=== PATIENT | male | born 1935 | race Caucasian/White ===

== ENCOUNTER 2020-08-23 08:37 | Outpatient (REF) | payer MEDICARE, SELFPAY ==
--- NOTE | ~2020-08-23 | US_ITS ---
EXAMINATION: US RETROPERITONEAL LIMITED (AORTA) CLINICAL INFORMATION: Abdominal aortic aneurysm without rupture. COMPARISON: Ultrasound abdominal aorta dated 10/09/2019 and 12/24/2017. TECHNIQUE: Grayscale, color Doppler and spectral Doppler evaluation of the abdominal aorta. The study was somewhat challenging due to the patient's body habitus. Therefore, the aneurysm measurements were difficult to obtain accurately. FINDINGS: There is aneurysmal dilatation of the distal abdominal aorta, measuring 4.8 x 4.0 cm. Previously, this measured 3.6 x 3.8 cm. The measurements of the aorta in maximum AP and transverse dimensions respectively are as follows: PROXIMAL: 3.1 x 3.1 cm. MID: 2.2 x 2.1 cm. PSV: 83 cm/sec. DISTAL: 4.9 x 4.0 cm. The measurements of the common iliac arteries are as follows: AP: Right: 1.2 cm. Left: 1.3 cm. TRANS: Right: 1.1 cm. Left: 0.8 cm. US/US abdominal aortic aneurysm IMPRESSION: 1. There is aneurysmal dilatation of the distal abdominal aorta, measuring 4.8 x 4.0 cm. This appears increased when compared to the previous study dated 3.6 x 3.8 cm. Because the patient's body habitus made it difficult to obtain exact measurements, I would recommend more accurate measurement of this aneurysm using CT scan of the abdomen.
== END 2020-08-23 08:38 | disposition home or self-care (01) ==
LOC: HO.US 08:37
PROVIDERS: PCP Internal Medicine; Visit Provider Internal Medicine
DX: I71.4 Abdominal aortic aneurysm, without rupture (principal)
CPT/HCPCS: 76706

== ENCOUNTER 2021-01-31 13:11 | Emergency (ER) | payer MEDICARE, SELFPAY ==
--- NOTE | ~2021-01-31 | XR_ITS ---
EXAMINATION: XR FOOT, LEFT CLINICAL INFORMATION: Pain while walking, heel and dorsum foot. COMPARISON: None TECHNIQUE: AP, lateral, and oblique views of the left foot. FINDINGS: There is no acute or healing fracture, dislocation, destructive process. Bony mineralization appears normal. Visualized subtalar joint unremarkable. There is a small corticated ossicle in region of distal Achilles and also small corticated ossicle adjacent to the distal dorsal talus. The retrocalcaneal recess appears preserved. The midfoot and forefoot shows no arthropathy. XR/XR foot LT 2V IMPRESSION: Unremarkable left foot.
[2021-01-31 13:45] VITALS: BP 157/75; PULSE 77; RESP 18; TEMP 36.4; O2SAT 95; BMI 28.8
--- NOTE | 2021-01-31 16:45 | ED.EXTPRO ---
HPI - Extremity Problem General Chief complaint: Extremity Problem Stated complaint: l foot pain Time Seen by Provider: 01/31/21 16:45 Source: patient Mode of arrival: ambulatory Limitations: no limitations History of Present Illness MD Complaint: extremity pain Onset (ago): day(s) (Past 2 days worse today) Pain Consistency: constant Location: left and lower extremity (At the foot posterior heel aspect near distal aspect of Achilles) Quality: aching Radiation: none Relieving factors: rest Exacerbating factors: weight bearing Associated symptoms: denies other symptoms Related Data Previous Rx's Medication Instructions Recorded acetaminophen 300 mg-codeine 15 mg 1 tab PO Q8H PRN #10 tab 01/31/21 tablet cyclobenzaprine 10 mg tablet 10 mg PO Q8H PRN #14 tab 01/31/21 naproxen 500 mg tablet 500 mg PO BID PRN #10 tab 01/31/21 Allergies Allergy/AdvReac Type Severity Reaction Status Date / Time lisinopril [LISINOPRIL] AdvReac Intermediate NAUSEA Verified 01/31/21 13:45 Review of Systems Review of Systems: Constitutional : No Weight loss, No Fever, No Chills, No Night Sweats, No Fatigue, No Malaise ENT/Mouth : No Hearing loss, No Ear Pain, No Nasal Congestion, No Sinus Pain, No Hoarseness, No sore throat, No Rhinorrhea, No Swallowing Difficulty Eyes: No Eye Pain, No Swelling, No Redness, No Foreign Body, No Discharge, No Vision Changes Cardiovascular : No Chest Pain, No SOB, No Dyspnea on Exertion, No Orthopnea, No Edema, No Palpitations Respiratory : No Cough, No Sputum, No Wheezing, No Smoke Exposure, No Dyspnea Gastrointestinal : No Nausea, No Vomiting, No Diarrhea, No Constipation, No abdominal Pain, No Hematochezia, No Melena Genitourinary : no irregular bleeding, No Dysuria, No Urinary Frequency, No Hematuria, No Urinary Incontinence, No Urgency, No Flank Pain, No Urinary Flow Changes, No Hesitancy Musculoskeletal : + left foot joint pain, No Myalgias, No Joint Swelling Skin : No Skin Lesions, No rash Neuro : No Weakness, No Numbness, No Paresthesias, No Loss of Consciousness, No Dizziness, No Headache Psych : No Anxiety/Panic, No Depression, No SI/HI/AH/VH, No Social Issues, Heme/Lymph: No Bruising, No Bleeding,No Lymphadenopathy Endocrine : No Polyuria, No Polydipsia, No Temperature Intolerance Yes all other systems are reviewed and are negative FOR[facility]LY [facility] Past Medical History Attestation statement: The following information was validated with the patient. Social History Social History Advance Directives: Yes Advance Directives Information Provided: Yes Advance Directives on File: No Physical Exam Vital Signs: Vital Signs: Last Vital Signs Temp 97.5 F 01/31/21 13:45 Pulse 77 01/31/21 13:45 Resp 18 01/31/21 13:45 BP 157/75 H 01/31/21 13:45 Pulse Ox 95 01/31/21 13:45 Body Mass Index 28.8 vital signs have been reviewed as normal and appeared to be correct. Blood pressure hypertensive 157/75. Heart rate normal. Respiration rate normal. Temperature normal. Oxygen saturation normal. Appearance: Alert. Oriented X3. No acute distress. Head: Normal external exam. Normocephalic. Atraumatic. Eyes: PERRLA. EOMI. Conjunctiva and sclera normal. Eyelids normal. ENT: Pharynx normal. Uvula midline. Moist mucous membranes. Neck: Normal inspection. Neck supple. FROM. CVS: Normal heart rate and rhythm. Respiratory: No respiratory distress. Painless inspiration. Skin: Skin warm and dry. Normal skin color. Normal skin turgor. No rashes/lesions/lacerations noted. Extremities: Patient with point tenderness to the posterior heel/ankle near the distal aspect of the insertion of the Achilles tendon although patient Achilles tendon does not appear to be ruptured negative Saunders test. No tenderness near plantar fasciitis aspect. Otherwise no calf tenderness or lower extremity edema. Otherwise all other Extremities exhibit normal range of motion and nontender. Neuro: Oriented X 3. No motor deficit. No sensory deficit. Reflexes normal. Normal steady gait. No focal neuro deficits noted. Vascular: + radial pulses/+ 2 distal pedal pulses/+2 dorsalis pedis b/l. Normal cap refill. No cyanosis noted to upper extremity nails and lower extremity toes nails. Course Course Course Narrative: 85-year-old male presenting to the ED with complaints of left foot/ankle pain at the posterior aspect near the heel after he went on a 1-1/2 mi walk 2 days ago and since then he has been having pain when he steps on the foot. On exam he has tenderness to the posterior heel/ankle aspect near the Achilles tendon although Achilles tendon does not appear to be ruptured. No lower extremity edema or calf tenderness noted. X-ray negative for any acute processes. Will DC home with symptomatic treatment and Steve wrap along with instructions return if any new or worsening symptoms to follow up with gallery or museum guide. Patient understands agrees with this plan. MDM - Extremity (Nontraumatic) Imaging Data Left foot x-ray: Attestation: I personally reviewed and interpreted this imaging study as follows: Radiologist's impression: FINDINGS: There is no acute or healing fracture, dislocation, destructive process. Bony mineralization appears normal. Visualized subtalar joint unremarkable. There is a small corticated ossicle in region of distal Achilles and also small corticated ossicle adjacent to the distal dorsal talus. The retrocalcaneal recess appears preserved. The midfoot and forefoot shows no arthropathy.? XR/XR foot LT 2V IMPRESSION: Unremarkable left foot. Discharge Plan Discharge Clinical Impression: Muscle strain of left foot Patient Disposition: Home, Self-Care Instructions: How to Use an Elastic Bandage (ED), Foot Sprain (ED) Prescriptions: New naproxen 500 mg tablet 500 mg PO BID PRN (Reason: pain) Qty: 10 RF: 0 acetaminophen-codeine 300-15 mg tablet 1 tab PO Q8H PRN (Reason: pain) Qty: 10 RF: 0 cyclobenzaprine 10 mg tablet 10 mg PO Q8H PRN (Reason: Muscle spasm) Qty: 14 RF: 0 Referrals: Yung Bailey [Physician] - 2 days Print Language: Chinese
== END 2021-01-31 17:12 | disposition home or self-care (01) ==
PROVIDERS: Emergency Provider Internal Medicine; PCP Internal Medicine
DX: S96.912A Strain of unspecified muscle and tendon at ankle and foot level, left foot, initial encounter (principal); X58.XXXA Exposure to other specified factors, initial encounter; Y93.01 Activity, walking, marching and hiking; Y92.9 Unspecified place or not applicable; Y99.9 Unspecified external cause status
CPT/HCPCS: 73620; 99283

== ENCOUNTER 2021-03-01 09:16 | Outpatient (REF) | payer MEDICARE, SELFPAY ==
[2021-03-01 10:22] LABS: Blood Urea Nitrogen 14 mg/dL (9-16); Estimated Glomerular Filt Rate 59
== END 2021-03-01 09:17 | disposition home or self-care (01) ==
LOC: HO.LAB 09:16
PROVIDERS: PCP Internal Medicine; Visit Provider Internal Medicine
DX: I10 Essential (primary) hypertension (principal); I71.4 Abdominal aortic aneurysm, without rupture
CPT/HCPCS: 36415; 82565; 84520

== ENCOUNTER 2021-03-07 08:11 | Outpatient (REF) | payer MEDICARE, SELFPAY ==
--- NOTE | ~2021-03-07 | CT_ITS ---
EXAMINATION: CTA ABDOMEN AND PELVIS CLINICAL INFORMATION: Abdominal aortic aneurysm. TECHNIQUE: Multiple axial images were obtained through the abdomen and pelvis before and after administration of 80 mL of Omnipaque 350 intravenously. Images were evaluated on independent dedicated 3-D workstation and 3-D images were reconstructed with concurrent radiologist supervision and subsequently interpreted. Specific vascular measurements are placed directly on the 3-D rendered images and are documented and stored in PACS. This CT examination was performed using dose optimization techniques as appropriate, variously including the following: *Automated exposure control. *Adjustment of mA and/or kV according to patient size (this includes techniques or standardized protocols for targeted exams where dose is matched to indication/reason for exam, i.e., extremities or head). *Use of iterative reconstruction technique. COMPARISON: CT of the abdomen on 02/05/2019. DLP: 325 mGy-cm FINDINGS: VASCULAR: Abdominal aorta: There is severe aortic atherosclerotic disease. The suprarenal abdominal aorta is normal in caliber. There is an infrarenal abdominal aortic aneurysm which measures up to 3.0 x 3.5 cm, previously measuring 2.8 x 3.1 cm measured transaxially on series 6 image 380. The size and appearance of the aneurysm is unchanged from the 2019 comparison. Small penetrating ulcer measuring approximately 7 mm within soft plaque along the right lateral wall of the aorta on series 6 image 335. This appears slightly larger than on the comparison study, however, it is not well evaluated on that exam. Eccentric soft plaque versus mural thrombus is seen along the posterolateral wall of the aneurysm, similar to the prior. Iliac arteries: Moderate atherosclerosis. Patent without flow-limiting stenosis. Normal caliber. Mesenteric arteries: The celiac and SMA are patent without high-grade stenosis. There is heavy calcification at the origin of the HANG however is patent. Renal arteries: The bilateral renal arteries are patent without high-grade stenosis. NONVASCULAR: Lung Bases: Minimal bibasilar atelectasis. A cyst at the base of the right lung measuring 2.6 cm is minimally increased in size from the comparison examination when it measured up to 1.8 cm. There is a septation within this cyst which is slightly nodular for example on series 504 image 30. Nodularity appears stable from the 2019 comparison. Liver, Gallbladder, Biliary Tree: The liver is normal in size, shape, and attenuation. No focal hepatic lesion or biliary ductal dilatation is present. The gallbladder is surgically absent. Pancreas: Mildly atrophic. Spleen: The spleen is enlarged measuring up to 14.2 cm, stable from 2019. Adrenal Glands: Unremarkable. Kidneys and Ureters: The kidneys display symmetric nephrograms. Low-density parapelvic cysts on the right are stable from the comparison. Subcentimeter left renal hypodensities are overall stable and are too small to characterize. There is no perinephric abnormality. Bladder: Decompressed. Gastrointestinal Tract: Normal caliber loops of small bowel. There is pancolonic diverticulosis affecting the sigmoid colon to the greatest extent. There is no evidence of diverticulitis. Abdominal Wall: No hernia is demonstrated. Lymph Nodes: There are multiple prominent, nonenlarged mesenteric lymph nodes and mildly increased attenuation of the mid abdominal mesentery. This is stable from the 2019 comparison. Pelvic Viscera: Unremarkable. Osseous Structures: No suspicious lesions. CT/CT angio abdomen pelvis IMPRESSION: 1. An infrarenal abdominal aortic aneurysm measures up to 3.5 cm, previously measuring up to 3.1 cm in 2019. 2. Stable, subtle fat stranding of the central mesentery with numerous prominent mesenteric lymph nodes seen.
[2021-03-07] MEDS: iohexoL 350 MG/ML 100 ML INFUS..BTL IV (09:40)
== END 2021-03-07 08:12 | disposition home or self-care (01) ==
LOC: HO.CT 08:11
PROVIDERS: Visit Provider Internal Medicine
DX: I71.4 Abdominal aortic aneurysm, without rupture (principal)
CPT/HCPCS: 74174; Q9967

== ENCOUNTER 2021-07-20 08:03 | Outpatient (REF) | payer MEDICARE, SELFPAY ==
--- NOTE | ~2021-07-20 | XR_ITS ---
EXAMINATION: XR chest 2V CLINICAL INFORMATION: Reason for Exam COUGH COMPARISON: Chest radiograph 07/09/2018 TECHNIQUE: 2 views of the chest XR/XR chest 2V FINDINGS/IMPRESSION: Clear lungs. No pneumothorax. Question of a small possible right lateral pleural effusion versus pleural parenchymal thickening unchanged from 2019. Prominent right pulmonary artery which could be seen in the setting of pulmonary hypertension. Normal cardiac silhouette.
== END 2021-07-20 08:04 | disposition home or self-care (01) ==
LOC: HO.XRAY 08:03
PROVIDERS: PCP Internal Medicine; Visit Provider Internal Medicine
DX: R05.9 Cough, unspecified (principal)
CPT/HCPCS: 71046

== ENCOUNTER 2021-08-01 07:48 | Outpatient (REF) | payer MEDICARE, SELFPAY ==
--- NOTE | ~2021-08-01 | CT_ITS ---
EXAMINATION: CT CHEST WITH CONTRAST CLINICAL INFORMATION: Cough. Pleural effusion. COMPARISON: Previous chest x-ray most recent July [address] angiogram of the abdomen and pelvis February 2021 TECHNIQUE: Multidetector volumetric CT imaging of the chest was obtained after the administration of 65 mL of Omnipaque 350 intravenous contrast without immediate adverse reactions. Axial MIP volume rendering provided. Sagittal and coronal reformatted images were obtained. This CT examination was performed using dose optimization techniques as appropriate, variously including the following: *Automated exposure control *Adjustment of mA and/or kV according to patient size (this includes techniques or standardized protocols for targeted exams where dose is matched to indication/reason for exam; i.e. extremities or head) *Use of iterative reconstruction technique DLP: 159 mGy-cm FINDINGS: LINTER TENDER: There is slight elevation of the right hemidiaphragm that is similar to previous chest x-rays. LUNGS: There is mild biapical pleural and parenchymal scarring and calcification. There is evidence of very mild paraseptal emphysema. There is a 2 mm calcified left upper lobe nodule axial image 41 series 7. There is a 3 mm left upper lobe nodule axial image 72 series 7. There is a 5 mm cyst in the left upper lobe axial image 98 series 7. There is a 2 cm cyst in the right lower lobe with septation axial image 122 series 7. This is similar to February 2021 exam. The lungs are otherwise clear. No endobronchial or endotracheal lesion is seen. MEDIASTINUM: There is mild coronary artery calcification. The mediastinum is otherwise normal. PLEURA: There is no pleural effusion. No pleural mass or thickening. AXILLA: No lymphadenopathy. UPPER ABDOMEN: The liver is low in attenuation suggestive of fatty infiltration. The gallbladder has been removed. There may be diverticulosis of the colon. The spleen is not completely imaged but may be appears enlarged. OSSEOUS STRUCTURES: Unremarkable. CT/CT chest w con IMPRESSION: No pleural effusion. Mild paraseptal emphysema. Small pulmonary nodules and lung cysts. Coronary artery calcification. According to the UPDATED 2017 Fleischner Society recommendations, the advised follow-up imaging for less than 6 mm nodule: Low risk, no chest CT follow-up and high risk, optional chest CT follow-up in one year. Fleischner guidelines were followed.
[2021-08-01] MEDS: iohexoL 350 MG/ML 100 ML INFUS..BTL IV (08:52)
== END 2021-08-01 07:49 | disposition home or self-care (01) ==
LOC: HO.CT 07:48
PROVIDERS: PCP Internal Medicine; Visit Provider Internal Medicine
DX: J90 Pleural effusion, not elsewhere classified (principal); R05.3 Chronic cough
CPT/HCPCS: 71260; Q9967

== ENCOUNTER 2021-09-06 10:52 | Outpatient (REF) | payer MEDICARE, SELFPAY ==
--- NOTE | ~2021-09-06 | FL_ITS ---
EXAMINATION: FL BARIUM SWALLOW CLINICAL INFORMATION: Cough. COMPARISON: None. TECHNIQUE: Barium swallow examination is performed using fluoroscopic evaluation in addition to multiple fluoroscopic spot views. The patient is imaged both upright and prone and using both thick and thin sulfate along with effervescent granules. Fluoroscopy time: 1.3 minutes DAP: 4.976 Gycm2 Images: 39. FINDINGS: Following oral administration of thick barium and barium-coated turkey, there is normal propagation of bolus from the oral cavity through the pharynx and esophagus and into the stomach without any evidence of obstruction, narrowing or stricture. There is mild retention of barium in the valleculae and piriform sinuses which clears with subsequent dry swallowing. No laryngeal penetration or aspiration seen. The prevertebral soft tissues are normal. FL/FL barium swallow IMPRESSION: Unremarkable barium swallow exam.
== END 2021-09-06 10:53 | disposition home or self-care (01) ==
LOC: HO.XRAY 10:52
PROVIDERS: Visit Provider Internal Medicine Gastroenterology
DX: R05.9 Cough, unspecified (principal)
CPT/HCPCS: 74220

== ENCOUNTER 2022-01-17 08:33 | Outpatient (REF) | payer MEDICARE, SELFPAY ==
--- NOTE | ~2022-01-17 | CT_ITS ---
EXAMINATION: CT ABDOMEN AND PELVIS WITHOUT CONTRAST CLINICAL INFORMATION: Abdominal aortic aneurysm. COMPARISON: CTA of the abdomen and pelvis February 2021. TECHNIQUE: Multidetector volumetric imaging was performed from the superior aspect of the liver through the pubic symphysis. Sagittal and coronal reformatted images were obtained on the technologist's workstation. This CT examination was performed using dose optimization techniques as appropriate, variously including the following: *Automated exposure control *Adjustment of mA and/or kV according to patient size (this includes techniques or standardized protocols for targeted exams where dose is matched to indication/reason for exam; i.e. extremities or head) *Use of iterative reconstruction technique DLP: 539 mGy-cm. FINDINGS: LUNG BASES: There is a 2 cm cyst in the right lower lobe that is stable. The lung bases are otherwise clear. LIVER, GALLBLADDER, AND BILIARY TREE: The liver is normal in size, shape, and attenuation. No focal hepatic lesion or biliary ductal dilatation is present. The gallbladder has been removed. PANCREAS: Unremarkable. SPLEEN: Upper normal in size measuring 13 cm in length. Similar to prior exams. ADRENAL GLANDS: Unremarkable. KIDNEYS AND URETERS: There is a small 2 mm nonobstructing stone in the upper pole of the left kidney. There are right renal cysts that are unchanged. No imaging follow-up. There is a 5 mm fatty lesion in the lower pole the right kidney suggestive of an angiomyolipoma. BLADDER: Not optimally distended. GASTROINTESTINAL TRACT: There is severe diverticulosis of the colon. Small and large bowel is otherwise normal. The appendix is not seen. The stomach is not distended. ABDOMINAL WALL: No significant hernia is appreciated. Question postsurgical changes in the left inguinal region. LYMPH NODES: There is stranding of the fat in the small bowel mesentery and small, small bowel mesentery lymph nodes. This is similar to previous exam. No enlarged lymph nodes. VASCULAR: There is no appreciable change in the posterior saccular lower abdominal aortic aneurysm measuring 3 x 3.2 cm in transverse and AP dimension axial image 45 series 3. PELVIC VISCERA: There are radiation seeds in the prostate gland. OSSEOUS STRUCTURES: There are degenerative changes of the hip joints. 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 There are degenerative changes of the lumbar spine. CT/CT abdomen pelvis wo IV con IMPRESSION: Stable lower abdominal aortic aneurysm measuring 3 x 2.2 cm compared to February 2021 exam. Inflammatory changes in the small bowel mesentery or nicole mesentery sign. This is a nonspecific finding. No enlarged lymph nodes seen. Severe diverticulosis of the colon. Small left renal stone. 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 Fleischner guidelines were followed.
== END 2022-01-17 08:34 | disposition home or self-care (01) ==
LOC: HO.CT 08:33
PROVIDERS: PCP Internal Medicine; Visit Provider Internal Medicine
DX: I71.40 Abdominal aortic aneurysm, without rupture, unspecified (principal); K57.30 Diverticulosis of large intestine without perforation or abscess without bleeding; N20.0 Calculus of kidney; N28.1 Cyst of kidney, acquired
CPT/HCPCS: 74176

== ENCOUNTER 2023-05-18 14:54 | Outpatient (REF) | payer MEDICARE, SELFPAY ==
--- NOTE | ~2023-05-18 | CT_ITS ---
EXAMINATION: CT ABDOMEN AND PELVIS WITHOUT CONTRAST CLINICAL INFORMATION: Abdominal aortic aneurysm without rupture. COMPARISON: CT abdomen and pelvis 01/17/2022. TECHNIQUE: Multidetector volumetric imaging was performed from the superior aspect of the liver through the pubic symphysis. Sagittal and coronal reformatted images were obtained on the technologist's workstation. This CT examination was performed using dose optimization techniques as appropriate, variously including the following: *Automated exposure control *Adjustment of mA and/or kV according to patient size (this includes techniques or standardized protocols for targeted exams where dose is matched to indication/reason for exam; i.e. extremities or head) *Use of iterative reconstruction technique DLP: 814 mGy-cm FINDINGS: LUNG BASES: No suspicious lung nodules. LIVER, GALLBLADDER, AND BILIARY TREE: Liver is mildly enlarged measuring 19 cm in right lobe length. The surface contour is smooth with no evidence of cirrhosis. Attenuation appears normal on comparable to the spleen. No discrete mass or ductal dilatation. Cholecystectomy. PANCREAS: No discrete pancreatic mass or ductal dilatation. SPLEEN: Mildly enlarged spleen measuring 13.4 cm in length. No perisplenic varices are appreciated. ADRENAL GLANDS: No adrenal mass. KIDNEYS AND URETERS: Punctate nonobstructing calculus in the upper pole left kidney. Simple cysts bilaterally. No follow-up imaging is recommended. 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 No hydronephrosis. BLADDER: Decompressed and not well evaluated but grossly unremarkable. GASTROINTESTINAL TRACT: Duodenal diverticulum near the head of the pancreas. Otherwise the small bowel is unremarkable. There is colonic diverticulosis without evidence of acute diverticulitis. [place] mesentery is again seen without locally enlarged lymph nodes. ABDOMINAL WALL: Fat-containing right indirect inguinal hernia. There is some fluid in the hernia sac. LYMPH NODES: No lymphadenopathy. VASCULAR: Infrarenal abdominal aortic aneurysm measures 3.7 x 3.0 cm. On the most recent prior study this measured 3.4 x 3.0 cm when measured similarly. PELVIC VISCERA: There are metallic densities in the prostate. OSSEOUS STRUCTURES: Degenerative changes in the spine. CT/CT abdomen pelvis wo IV con IMPRESSION: Infrarenal abdominal aortic aneurysm measures 3.7 x 3.0 cm compared to previous 3.4 x 3.0 cm 01/17/2022. Best Practice Recommendation: Based on published guidelines in J Am Darlyn Radiol 2013; 10(10):789-794 and J Vasc Surg. 2018; 67:2-77, the recommendation is follow-up every 2 years and continue care with vascular specialist. Fleischner guidelines were followed.
== END 2023-05-18 14:55 | disposition home or self-care (01) ==
LOC: HO.CT 14:54
PROVIDERS: PCP Internal Medicine; Visit Provider Internal Medicine
DX: I71.43 Infrarenal abdominal aortic aneurysm, without rupture (principal)
CPT/HCPCS: 74176

== ENCOUNTER 2024-06-06 21:32 | Emergency (ER) | payer MEDICARE, SELFPAY ==
[2024-06-06 21:48] VITALS: BP 168/77; PULSE 57; RESP 17; TEMP 36.6; O2SAT 98; BMI 31.7
--- OUTSIDE RECORDS SUMMARY | 2024-06-07 01:04 | XMS_ITS | Patient Health Record ---
Author Organization [facility] Address [address] [place] [address] Care Team Providers Care Senior Information Security Architect Name Role Phone Ata Nguyen MD Primary Care Provider Evan Mathis Jr Unavailable ALLERGIES No Known Allergies REASON FOR REFERRAL No Information MEDICATIONS Medication SIG (Take, Route, Frequency, Duration) Notes Start Date End Date Status tylenol 1 tab Oral for 14 days Active amLODIPine Besy-Benazepril HCl 2.5-10 MG as directed Orally Active Tamsulosin HCl 0.4 MG 1 capsule Orally O nce a day Active Pravastatin Sodium 40 MG 1 tablet Orally Once a day Active Pantoprazole Sodium 20 MG 1 tablet Orall y Once a day Active Stool Softener 100 MG 1 capsule as neede d Orally Once a day for 30 day(s) Active IMMUNIZATIONS Vaccine Route Administration Date Status Comme nts Influenza Unknown 08/29/2021 Refused Influenza Unknown 08/22/2018 Others SOCIAL HISTORY Sex Assigned At : Social History Observation Description Sex Assigned At Unknown PROBLEMS Problem Type ICD Code Onset Dates Problem Status W/U Status Risk SNOMED Code Notes Problem Gastroesophageal reflux disease without esophagitis (K21.9) Active confirmed 495086903 Problem Dysphagia, unspecified type (R13.10) Active confirmed 69302287 Problem Abnormal barium swallow (R93.3) Active confirmed 989708378 Problem Elevated liver function tests (R94.5) Active confirmed 535124967 Problem Cough (R05.9) Active confirmed [id number] PLAN OF TREATMENT Pending Test Test Name Order Date LIVER PROFILE 02/14/2019 XR BARIUM SWALLOW-ESOPHAGUS 08/29/2021 XR BARIUM SWALLOW, MODIFIED VIDEO 2018 Future Test Test Name Order Date COLONOSCOPY 08/14/2012 UPPER GI ENDOSCOPY 08/22/2018 Insurance Providers Payer Name Payer Address Payer Phone Subscriber Number Group Number Insured Name Patient Relationship to Insured Coverage Start Date Coverage End Date [facility] [address] [place], [place] [phone] [id number] KERRY ALVAREZ Self - patient is the insured MEDICAL (GENERAL) HISTORY Medical History History ICD Code colonoscopy 10/02/12, tubular adenoma x1, further screening optional based on age gerd EGD 10/09/18 normal benign gastric polyps hypertension elevated cholesterol left hip dislocation Prostate cancer status post XRT 2008 Surgical History Surgery Date(Month/Year) appendectomy right lower extremity surgery following an accident hernia repair gall bladder removal Hospitalization History Reason Date(Month/Year) gall bladder 2020
--- NOTE | 2024-06-07 01:18 | ED_ITS ---
HPI - General Adult General Chief complaint: Skin/Abscess/Foreign Body Stated complaint: Rash started on right side spreading Time Seen by Provider: 06/07/24 01:03 Source: patient Limitations: no limitations History of Present Illness ED Provider: Juany Khan PA-C HPI narrative: 89-year-old male presents with rash x2 weeks. Patient states he developed ?red itchy bumps over his back?, a few weeks ago. The rash has spread, is now more extensive over his back. He does not have the rash anywhere else. The rash is pruritic, not painful. The rash was never vesicular. The patient denies new body products, lotion, laundry detergent. Patient states he did purchase a new set of sheets, but he did not wash prior to using; the patient just wash the sheets. He does not wear a shirt when he goes to bed, and he does primarily lay on his back. Denies new food or medication. No fevers. Related Data Previous Rx's ?Medication ?Instructions ?Recorded acetaminophen 300 mg-codeine 15 mg 1 tab PO Q8H PRN pain #10 tabs 01/31/21 tablet cyclobenzaprine 10 mg tablet 10 mg PO Q8H PRN Muscle spasm #14 01/31/21 tabs naproxen 500 mg tablet 500 mg PO BID PRN pain #10 tabs 01/31/21 hydroxyzine HCl 25 mg tablet 25 mg PO TID PRN itching #10 tabs 06/07/24 methylprednisolone 4 mg tablets in 4 mg PO QAM #1 ea 06/07/24 a dose pack (Medrol ([place])) Allergies Allergy/AdvReac Type Severity Reaction Status Date / Time lisinopril [LISINOPRIL] AdvReac Intermediate NAUSEA Verified 06/06/24 21:49 Review of Systems Review of Systems: Yes all other systems are reviewed and are negative Constitutional: Constitutional: Denies fatigue, Denies fever(s) and Denies headache(s) ENT: Denies headache(s) Cardiovascular: Cardiovascular: Denies chest pain Respiratory: Respiratory: Denies cough Gastrointestinal: Gastrointestinal: Denies abdominal pain, Denies nausea and Denies vomiting Integumentary/Breasts: Skin/Breast: Reports pruritus, Reports erythema and Reports rash Neurologic: Denies headache(s) Endocrine: Endocrine: Denies fatigue PMFSH Past Medical History Attestation statement: The following information was validated with the patient. Social History Social History Advance Directives: Yes Advance Directives Information Provided: Yes Advance Directives on File: No Do you have a plan to hurt others: No Plan Physical Exam ED Vital Signs: Vital Signs - 24 hr 06/06/24 21:48 Temperature 97.8 F Pulse Rate 57 Respiratory Rate 17 Blood Pressure 168/77 H Pulse Oximetry 98 Oxygen Delivery Method Room Air BMI result Body Mass Index 31.7 Const Other: Alert Orientation/consciousness: patient oriented x3 Resp Effort & Inspection: normal respiratory effort Cardio Other: Normal peripheral perfusion Skin Other: Patient has numerous raised, erythematous, dry with overlying scab formation some with excoriations, somewhat circular in nature, lesions over his entire back. They are not vesicular, they do not coalesce, seems consistent with contact dermatitis Neuro General: patient oriented x3, gait normal, no focal motor deficits and CN's II- XI intact bilaterally Psych Other: Cooperative Medical Decision Making Medical Decision Making MDM Narrative: 89-year-old male presents with rash x2 weeks. Patient states he developed ?red itchy bumps over his back?, a few weeks ago. The rash has spread, is now more extensive over his back. He does not have the rash anywhere else. The rash is pruritic, not painful. The rash was never vesicular. The patient denies new body products, lotion, laundry detergent. Patient states he did purchase a new set of sheets, but he did not wash prior to using; the patient just wash the sheets. He does not wear a shirt when he goes to bed, and he does primarily lay on his back. Denies new food or medication. No fevers. No relevant chronic issues History: Per patient I have considered the following differential diagnoses: Contact dermatitis, folliculitis, shingles, bedbugs, Plan: The rash seems to be most consistent with a contact dermatitis, perhaps he is reacting to something in his new sheets. Thought about folliculitis, however the rash is not painful, there was never been pustules, and he has no hair on his back. Thought about shingles, however the rash was never vesicular it is not painful, it also crosses the midline. Thought about bed bugs, however he has no lesions over his chest, it is very focal to the back. We will send with a steroid taper. And hydroxyzine. Discharge Plan Discharge Clinical Impression: Contact dermatitis Patient Disposition: Home, Self-Care Instructions: Contact Dermatitis (ED) Additional Instructions: The rash seems most consistent with contact dermatitis. See home care instructions. Use the steroid as directed, take in the morning. Use the hydroxyzine as needed for itching, it may cause drowsiness. If the rash pe rsists, follow up with a regional owner operator truck driver, I suggest midnight dermatology in [place] Prescriptions: New hydroxyzine HCl 25 mg tablet 25 mg PO TID PRN (Reason: itching) Qty: 10 0RF methylprednisolone [Medrol ([place])] 4 mg tablets,dose pack 4 mg PO QAM Qty: 1 0RF No Action naproxen 500 mg tablet 500 mg PO BID PRN (Reason: pain) Qty: 10 0RF acetaminophen-codeine 300-15 mg tablet 1 tab PO Q8H PRN (Reason: pain) Qty: 10 0RF cyclobenzaprine 10 mg tablet 10 mg PO Q8H PRN (Reason: Muscle spasm) Qty: 14 0RF Print Language: Urdu
[2024-06-07] MEDS: hydrOXYzine HCL 25 MG TABLET PO (01:29)
[2024-06-07 01:30] VITALS: BP 157/66; PULSE 70; RESP 18; TEMP 36.5; O2SAT 96
[2024-06-07 01:33] VITALS: BP 157/66; PULSE 70; RESP 18; TEMP 36.5; O2SAT 96
== END 2024-06-07 01:33 | disposition home or self-care (01) ==
PROVIDERS: Emergency Provider Internal Medicine; PCP Radiology Diagnostic Radiology
DX: L25.9 Unspecified contact dermatitis, unspecified cause (principal); R21 Rash and other nonspecific skin eruption
CPT/HCPCS: 99283